=== PATIENT | female | born 1960 | race Caucasian/White ===

== ENCOUNTER 2024-06-16 06:49 | Emergency (ER) | payer BC, OTHER ==
[~2024-06-16] VITALS: Ht 162.6 cm; Wt 83.9 kg
[2024-06-16 07:05] VITALS: TEMP 97.7
[2024-06-16] MEDS: DIPHENHYDRAMINE HCL INJ 50 MG/ML VIAL IV ONE (07:35)
[2024-06-16] MEDS: SODIUM CHLORIDE 0.9% 1000ML 1,000 ML IV STA (07:35)
[2024-06-16] MEDS: METHYLPREDNISOLONE SOD SUCC 125 MG/2ML VIAL IV ONE (07:35)
[2024-06-16] MEDS: FAMOTIDINE 20 MG/2 ML VIAL IV STA (07:35)
[2024-06-16] MEDS ORDERED: ONDANSETRON HCL INJ 2MG/ML 2ML 2 MG/ML VIAL ONE (07:44)
[2024-06-16] MEDS ORDERED: FAMOTIDINE20 MG PO (07:51)
[2024-06-16] MEDS ORDERED: PREDNISONE50 MG PO (07:51)
[2024-06-16] MEDS ORDERED: DIPHENHYDRAMINE25 M1 PO (07:51)
[2024-06-16] MEDS ORDERED: ONDANSETRON ODT4 MG PO (08:16)
[2024-06-16] MEDS: ONDANSETRON HCL INJ 2MG/ML 2ML 2 MG/ML VIAL IV STA (08:25)
[2024-06-16 08:26] VITALS: PULSE 76; RESP 16; O2SAT 96
== END 2024-06-16 08:32 | disposition home or self-care (01) ==
LOC: FSED 07:02
DX: L27.0 Generalized skin eruption due to drugs and medicaments taken internally (principal); L29.9 Pruritus, unspecified; T38.3X5A Adverse effect of insulin and oral hypoglycemic [antidiabetic] drugs, initial encounter; Y92.009 Unspecified place in unspecified non-institutional (private) residence as the place of occurrence of the external cause; E11.9 Type 2 diabetes mellitus without complications; Z79.84 Long term (current) use of oral hypoglycemic drugs; I10 Essential (primary) hypertension; E78.5 Hyperlipidemia, unspecified; K21.9 Gastro-esophageal reflux disease without esophagitis; K22.70 Barrett's esophagus without dysplasia; Z79.899 Other long term (current) drug therapy
CPT/HCPCS: 99283; J1200; J2405; J2919; J7030